=== PATIENT | male | born 1980 | race Caucasian/White ===

== ENCOUNTER 2021-08-18 15:22 | Emergency (ER) | payer BC ==
[~2021-08-18] VITALS: Ht 182.9 cm; Wt 100.0 kg
[~2021-08-18 15:22] MED LIST: PREVACID 30MG30 M1 PO
[2021-08-18 15:40] VITALS: PULSE 84; TEMP 99.4
[2021-08-18] MEDS ORDERED: ULTRAM 50MG TAB50 MG PO (15:43)
[2021-08-18 16:36] VITALS: BP 170/81
== END 2021-08-18 16:36 | disposition home or self-care (01) ==
LOC: COL.ER 15:22
DX: M79.661 Pain in right lower leg (principal)

== ENCOUNTER → 2021-08-19 | Outpatient (CLI) | payer BC ==
[~2021-08-19] MED LIST changes: +ULTRAM 50MG TAB50 MG PO
== END ==
LOC: COL.VAS 07:52
DX: M79.661 Pain in right lower leg (principal); M79.89 Other specified soft tissue disorders